=== PATIENT | male | born 1955 ===

== ENCOUNTER 2019-11-29 09:04 | Day surgery (SDC) | payer OTHER ==
[~2019-11-29 09:04] MED LIST: DIPRIVAN 200 MG/20 ML IV ONE; Ketamine HCl 50 MG/ML ONE
[2019-11-29] MEDS ORDERED: Depo-Medrol 40 MG/ML IM ONE (09:05)
[2019-11-29] MEDS ORDERED: Marcaine 0.5% SDV 10 ML IJ ONE (09:05)
--- NOTE | 2019-11-29 11:41 | XRAY ---
Indication: Left shoulder injection. Intraoperative fluoroscopy was provided for 11 seconds. Single digital spot image submitted for interpretation demonstrates needle tip projecting left glenohumeral joint superiorly. Small amount of contrast injected for needle tip placement. Correlate with intraoperative findings/report.
--- NOTE | 2019-11-29 11:49 | XRAY ---
11 seconds fluoroscopy time in surgery for left intra-articular shoulder injection.
[2019-11-29] MEDS ORDERED: Lactated Ringers 1,000 ML IV ONE (16:35)
== END 2019-11-29 11:12 | disposition home or self-care (01) ==
LOC: SDC-PAIN 09:04
PROVIDERS: ATTEND Psychiatry & Neurology Pain Medicine
DX: M19.012 Primary osteoarthritis, left shoulder (principal); I10 Essential (primary) hypertension; E11.9 Type 2 diabetes mellitus without complications; J44.9 Chronic obstructive pulmonary disease, unspecified; F41.8 Other specified anxiety disorders; G47.30 Sleep apnea, unspecified; K21.9 Gastro-esophageal reflux disease without esophagitis; I25.10 Atherosclerotic heart disease of native coronary artery without angina pectoris; I25.2 Old myocardial infarction; I49.9 Cardiac arrhythmia, unspecified; Z79.899 Other long term (current) drug therapy
CPT/HCPCS: 20610; 73030; 77002; 82962; J1030; J2704; Q9966